=== PATIENT | female | born 1985 | race Caucasian/White ===

== ENCOUNTER 2017-02-02 13:28 | Emergency (ER) | payer OTHER ==
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
--- NOTE | 2017-02-02 15:31 | ED MED RECONCILIATION SUMMARY ---
Patient: NAVEED JIMENEZ Medication Reconciliation Report [facility] VisitID: [id number] [address] [place] [address] 31y, F Registration Date/Time: 02/02/2017 Weight: 61.2 kg Height/Length: 62 in. BMI: 24.7 ALLERGIES: Vicodin The patient's Home Medications are listed below: NONE. The source(s) of the original Home Medication information: Not obtained. The following Medications were given to the patient in the Emergency Department: None. The following Medications were prescribed to the patient: Flexeril 10 mg: Take 1 orally every 8 hours as needed for muscle spasm. Dispense twenty (20). No refills. Substitution is permissible. -- Jinny Weiss A.R.N.P. Ultram 50 mg tablets: take 1-2 orally every 6 hours as needed for pain. Dispense twenty (20). No refills. Substitution is permissible. -- Jinny Weiss A.R.N.P.
--- NOTE | 2017-02-02 15:31 | ED MAR SUMMARY ---
..... Medication Administration Record [facility] [address] [place], [place] [id number] Patient: NAVEED JIMENEZ Visit ID: [id number] 31y, F Weight: 61.2 kg Height/Length: 62 in BMI: 24.7 ALLERGIES: Vicodin
--- NOTE | 2017-02-02 15:31 | ED MED RECONCILIATION SUMMARY ---
Patient: NAVEED JIMENEZ Medication Reconciliation Report [facility] VisitID: [id number] [address] [place] [address] 31y, F Registration Date/Time: 02/02/2017 Weight: 61.2 kg Height/Length: 62 in. BMI: 24.7 ALLERGIES: Vicodin The patient's Home Medications are listed below: NONE. The source(s) of the original Home Medication information: Not obtained. The following Medications were given to the patient in the Emergency Department: None. The following Medications were prescribed to the patient: Flexeril 10 mg: Take 1 orally every 8 hours as needed for muscle spasm. Dispense twenty (20). No refills. Substitution is permissible. -- Jinny Weiss A.R.N.P. Ultram 50 mg tablets: take 1-2 orally every 6 hours as needed for pain. Dispense twenty (20). No refills. Substitution is permissible. -- Jinny Weiss A.R.N.P.
--- NOTE | 2017-02-02 15:31 | ED MAR SUMMARY ---
..... Medication Administration Record [facility] [address] [place], [place] [id number] Patient: NAVEED JIMENEZ Visit ID: [id number] 31y, F Weight: 61.2 kg Height/Length: 62 in BMI: 24.7 ALLERGIES: Vicodin
== END 2017-02-02 14:20 | disposition home or self-care (01) ==
LOC: ED SRH 13:28
DX: S16.1XXA Strain of muscle, fascia and tendon at neck level, initial encounter (principal); V43.53XA Car driver injured in collision with pick-up truck in traffic accident, initial encounter; Y93.89 Activity, other specified; Y92.410 Unspecified street and highway as the place of occurrence of the external cause; Y99.9 Unspecified external cause status; Z88.5 Allergy status to narcotic agent